=== PATIENT | female | born 1950 | race Caucasian/White ===

== ENCOUNTER → 2017-02-17 08:26 | Outpatient (CLI) | payer BC ==
[2015-06-30 08:36] VITALS: BMI 22.7
[~2017-02-17 08:26] MED LIST: ALENDRONATE SOD70 MG PO; BAYER CHEWABLE81 MG PO; CALTRATE 600 M600 M1 PO; LEVOTHY; LISINOPRIL; LISINOPRIL2.5 MG; MULTIPLE VITAMI1 TA1 PO
== END | disposition home or self-care (01) ==
LOC: D.RAD 08:26
DX: R13.19 Other dysphagia (principal)

== ENCOUNTER 2017-04-14 06:08 | Day surgery (SDC) | payer BC ==
[2017-04-10 14:54] LABS: HEMATOCRIT 38.7 % (36.0-48.0); HEMOGLOBIN 13.2 g/dL (12-16); MCH 33.2 pg (26.0-34.0); MCHC 34.1 g/dL (31.0-37.0); MCV 97.5 fL (80.0-100.0); RBC 3.97 10x6/uL (4.00-5.40); RDW 12.3 % (11.5-14.5); WBC 4.5 10x3/uL (4.8-10.8)
[2017-04-10 15:08] LABS: ANION GAP 9.8 mmol/L (8-16); CALCIUM 8.7 mg/dL (8.5-10.1); CARBON DIOXIDE 32.3 mmol/L (21.0-32.0); POTASSIUM - SERUM 4.1 mmol/L (3.5-5.1)
[~2017-04-14] VITALS: Ht 160 cm; Wt 65.5 kg
[~2017-04-14 06:08] MED LIST changes: +FISH OIL 1,0001 CA1 PO; +LEVOTHYROXINE50 MCG PO; -LISINOPRIL; +LISINOPRIL5 MG PO; +PROTONIX40 MG PO
[2017-04-14 10:05] VITALS: BP 121/73; BMI 25.5
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
--- NOTE | 2017-04-14 11:44 | NUR ---
NOTIFIED OF DELAY.
--- NOTE | 2017-04-14 12:23 | NUR ---
PT AWARE OF DELAY REASON AND NEW START TIME. PT WAS PLACED IN HOLDING DURING DELAY ON PULSE OX APPLIED TO PT IN HOLDING
[2017-04-14 15:11] VITALS: BP 127/34
--- NOTE | 2017-04-14 16:00 | NUR ---
RECIEVED TO ROOM 2229 VIA STRETCHER FROM RECOVERY ROOM PT AWAKE AND ALERT ORIENTED X 3 LUNGS CLEAR BILATERAL ABD TENDER WITH LAP SITES X 5 NOTED PT COMPLAIN OF PAIN TO LAP SITE TO RIGHT SIDE. NOTED TO HAVE BRUISING TO AROUND RIGHT SIDE INCISION.
[2017-04-14 16:35] VITALS: BP 138/55; Ht 160 cm; Wt 65.5 kg
--- NOTE | 2017-04-14 17:03 | NUR ---
FHA UNDERWRITER INITIATED PER THIS NURSE 1 MG DOSE GIVEN PER FHA UNDERWRITER. PER STANDARD SETTINGS. WILL MONITOR FOR EFECTIVENESS
--- NOTE | 2017-04-14 17:12 | NUR ---
PT STATES LITTLE PAIN RELEIF FROM MORPHINE WELFARE ELIGIBILITY WORKER. EXPLAINED TO PT IT TAKES A FEW DOSES FROM WELFARE ELIGIBILITY WORKER TO OBTAIN RELEIF. NEW ORDER OBTAINED FOR MIRALAX DAILY PER DR STARK
[2017-04-14 19:00] VITALS: BP 138/76
--- NOTE | 2017-04-14 23:35 | NUR ---
194)rec'd.assisted up to bathrm.urinating without difficulty.abd. lap sites dry no drainage steri strips intact with some bruising noted around couple lap sites. will continue to monitor for any chges. and follow current plan of care
--- NOTE | 2017-04-15 02:20 | NUR ---
24 G IV SITED IN L FOREARM X1 ATTEMPT, MICHELLE WYLIE RESTARTING FLUIDS ORDERED, FALL PRECAUTIONS IN PLACE
[2017-04-15 04:00] VITALS: BP 129/55
[2017-04-15 05:04] LABS: BASOPHILS 0.2 % (0-2); EOSINOPHILS 1.9 % (0-7); HEMATOCRIT 34.2 % (36.0-48.0); HEMOGLOBIN 11.4 g/dL (12-16); LYMPHOCYTES 12.8 % (15-50); MCH 32.9 pg (26.0-34.0); MCHC 33.3 g/dL (31.0-37.0); MCV 98.8 fL (80.0-100.0); MEAN PLATELET VOLUME 9.1 fL (7.4-10.4); MONOCYTES 3.6 % (2-11); NEUTROPHILS 81.5 % (40-80); PLATELET COUNT 223 10x3/uL (130-400); RBC 3.46 10x6/uL (4.00-5.40); RDW 12.4 % (11.5-14.5); WBC 6.2 10x3/uL (4.8-10.8)
[2017-04-15 05:30] LABS: ANION GAP 8.8 mmol/L (8-16); CALCIUM 8.2 mg/dL (8.5-10.1); CARBON DIOXIDE 29.8 mmol/L (21.0-32.0); CREATININE - SERUM 0.9 mg/dL (0.6-1.3); MAGNESIUM - SERUM 1.4 mg/dL (1.8-2.4); POTASSIUM - SERUM 3.6 mmol/L (3.5-5.1)
--- NOTE | 2017-04-15 07:55 | NUR ---
PT ASSESSMENT COMPLETE NO ACUTE DISTRESS NOTED VOICES ALL NEEDS TO STAFF UP WITH SPOUSE TO AMBULATE IN HALLWAY PER PROTOCOL.
--- NOTE | 2017-04-15 08:01 | OP ---
PATIENT NAME: MOUNIKA HOWARD MEDICAL RECORD: [id number] :54 LOCATION:[id number] ADMISSION DATE: SURGEON: JALEEL STARK MD DATE OF OPERATION: 04/14/2017 SURGEON: Jaleel Stark MD. PREOPERATIVE DIAGNOSES: 1. Gastroesophageal reflux disease with esophagitis. 2. Diaphragmatic hernia. 3. Hypertension. POSTOPERATIVE DIAGNOSES: 1. Gastroesophageal reflux disease with esophagitis. 2. Diaphragmatic hernia. 3. Hypertension. PROCEDURES PERFORMED: 1. Laparoscopic hiatal hernia repair. 2. Laparoscopic Mone fundoplication. ANESTHESIA: General. COMPLICATIONS: None. SPECIMENS: None. Case was clean. ESTIMATED BLOOD LOSS: 30 cc. OPERATIVE REPORT: After consent was obtained, the patient was taken to the operating room and placed in the supine position on the operating table. Next, general anesthesia was given via endotracheal intubation. A timeout was performed to confirm the correct patient and procedure. The abdomen was then prepped and draped in typical sterile fashion. Local anesthetic was injected just above the umbilicus. A stab incision was made with an 11-blade scalpel. Using an 11-mm bladeless optical trocar, the abdomen was entered under direct laparoscopic vision. Adequate pneumoperitoneum was achieved. The abdominal cavity was inspected. No evidence of bowel injury. No evidence of bleeding. The patient was then placed in the steep reverse Trendelenburg position. At this time, all remaining trocars were placed after the administration of local anesthetic, 11-mm and 5-mm trocar in the right lateral quadrant, 5-mm trocar in the left lateral quadrant and a medium sized Glory in the subxiphoid position. The left lobe of the liver was then elevated exposing the gastroesophageal junction and immediately noticed was a large hiatal hernia containing the upper portion of the stomach and cardia. At this time, the gastrohepatic ligament was opened using Harmonic scalpel. Dissection continued posteriorly until the right crura was identified. The posterior stomach and esophagus were dissected off the crura. The hernia was reduced, ____ in the abdomen. Dissection then continued superiorly. Next, the short gastrics were taken along the upper third of the stomach along the cardia, used the Harmonic scalpel along the short gastric attachments to the spleen. Dissection continued until the left crura was identified. The left crura was skeletonized. The hernia sac was excised circumferentially with the Harmonic scalpel. Dissection continued in the mediastinum until approximately 4-6 cm of intraabdominal esophagus were obtained. The diaphragmatic hiatus was then closed with an 0 OPERATIVE REPORT [id number] MOUNIKA HOWARD Stratafix polypropylene suture. At this time, the cardia of the stomach was passed posterior to the esophagus and gastroesophageal junction. A loose floppy Mone fundoplication was performed with a 2-0 Stratafix suture. Once complete, Gayathri was applied into the mediastinal spaces. The abdominal cavity was copiously irrigated and suctioned. Careful attention was paid to hemostasis. At the end of the case, there was no evidence of bowel injury, no evidence of bleeding. At this time, the Glory liver retractor was removed. The two 11-mm trocar sites were closed with the Eliezer-Jessica suture passer under direct laparoscopic vision with an 0 Vicryl suture. At this time, all remaining instruments were removed. The abdomen was desufflated. Trocars were removed. The skin was closed with 4-0 Monocryl, Mastisol and Steri-Strips. At the end of the case, all needle and instrument counts were correct. No complications occurred. The patient was extubated and transferred to the PACU in stable condition. TRANSINT:[id number] Voice Confirmation ID: [id number] DOCUMENT ID: [id number] JALEEL STARK MD at 0801 CC: [id number] DICTATION DATE: 04/14/17 1347 AUTOMATION TEST ENGINEER: 04/14/17 23[id number] [place] [address]
[2017-04-15] MEDS ORDERED: PROTONIX40 MG PO (08:22)
[2017-04-15] MEDS ORDERED: HYDROCODON-ACE1 EAC7 PO (08:22)
[2017-04-15] MEDS ORDERED: MIRALAX17 GM PO (08:23)
[2017-04-15] MEDS ORDERED: CYCLOBENZAPRINE10 MG PO (08:23)
[2017-04-15 08:30] VITALS: BP 110/90
--- NOTE | 2017-04-15 11:00 | NUR ---
PT DISCHARGE INSTRUCTIONS GIVEN PIV DISCONTINUED PT STATES UNDERSTANDING OF DISCHARGE INSTRUCTIONS. PT DISCHARGED VIA WHEELCHAIR TO PRIVATE VEHICLE PER VOULENTEER STAFF.
== END 2017-04-15 11:15 | disposition home or self-care (01) ==
LOC: D.OPS 06:08 → D.PAN 11:00 → D.OPS 11:00 → D.MS 14:50 → D.OPS 04-15 11:15
PROVIDERS: Anesthesiology; Surgery
DX: K21.0 Gastro-esophageal reflux disease with esophagitis (principal); K44.9 Diaphragmatic hernia without obstruction or gangrene; I10 Essential (primary) hypertension

== ENCOUNTER 2017-07-02 05:01 | Day surgery (SDC) | payer BC ==
[~2017-07-02] VITALS: Ht 165.1 cm; Wt 63.6 kg
[~2017-07-02 05:01] MED LIST changes: +CYCLOBENZAPRINE10 MG PO; +HYDROCODON-ACE1 EAC7 PO; +MIRALAX17 GM PO
[2017-07-02 06:42] VITALS: Ht 165.1 cm; Wt 63.6 kg
[2017-07-02] MEDS ORDERED: ZOFRAN ODT4 MG/UDTAB PO (06:46)
[2017-07-02] MEDS ORDERED: TOBREX5 ML EACH EYE (06:47)
[2017-07-02] MEDS ORDERED: CARAFATE1 G PO (06:48)
[2017-07-02] MEDS ORDERED: DEXILANT30 MG PO (06:49)
[2017-07-02] MEDS ORDERED: ALENDRONATE SOD70 MG PO (06:49)
[2017-07-02 07:31] LABS: CALC OSMOLALITY 285 mosm/kg (275-300); CALCIUM 9.3 mg/dL (8.5-10.1); CHLORIDE - SERUM 104 mmol/L (98-107); CREATININE - SERUM 0.8 mg/dL (0.6-1.3); GLUCOSE 91 mg/dL (74-106); POTASSIUM - SERUM 4.4 mmol/L (3.5-5.1); SODIUM 142 mmol/L (136-145); UREA NITROGEN 20 mg/dL (7-18); eGFR NON AFRICAN AMERICAN 76 mL/min (90-120)
[2017-07-02 07:33] LABS: HEMATOCRIT 38.5 % (36.0-48.0); HEMOGLOBIN 13.1 g/dL (12-16); MCH 32.2 pg (26.0-34.0); MCV 94.6 fL (80.0-100.0); MEAN PLATELET VOLUME 9.1 fL (7.4-10.4); RBC 4.07 10x6/uL (4.00-5.40); RDW 12.9 % (11.5-14.5); WBC 4.2 10x3/uL (4.8-10.8)
== END 2017-07-02 09:20 | disposition home or self-care (01) ==
LOC: D.OPS 05:01
PROVIDERS: Anesthesiology
DX: K44.9 Diaphragmatic hernia without obstruction or gangrene (principal); K21.0 Gastro-esophageal reflux disease with esophagitis; I10 Essential (primary) hypertension; E03.9 Hypothyroidism, unspecified; Z01.812 Encounter for preprocedural laboratory examination

== ENCOUNTER → 2017-07-21 17:03 | Outpatient (CLI) | payer BC ==
[2017-07-02 06:42] VITALS: BMI 23.3
[~2017-07-21 17:03] MED LIST changes: +CARAFATE1 G PO; +DEXILANT30 MG PO; +TOBREX5 ML EACH EYE; +ZOFRAN ODT4 MG/UDTAB PO
== END | disposition home or self-care (01) ==
LOC: D.MAMMO 16:00
DX: Z12.31 Encounter for screening mammogram for malignant neoplasm of breast (principal)

== ENCOUNTER → 2017-09-15 14:45 | Outpatient (CLI) | payer BC ==
[2017-07-02 06:42] VITALS: BMI 23.3
== END | disposition home or self-care (01) ==
LOC: D.CT 14:45
DX: K43.2 Incisional hernia without obstruction or gangrene (principal)

== ENCOUNTER → 2018-07-14 23:55 | Outpatient (CLI) | payer BC ==
[2017-07-02 06:42] VITALS: BMI 23.3
== END | disposition home or self-care (01) ==
LOC: D.MAMMO 06-29 15:15
DX: Z12.31 Encounter for screening mammogram for malignant neoplasm of breast (principal)

== ENCOUNTER → 2018-11-20 07:05 | Outpatient (CLI) | payer BC ==
[2017-07-02 06:42] VITALS: BMI 23.3
== END | disposition home or self-care (01) ==
LOC: D.MRI 07:05
DX: M54.41 Lumbago with sciatica, right side (principal)

== ENCOUNTER → 2018-12-14 16:01 | Outpatient (CLI) | payer BC ==
[2017-07-02 06:42] VITALS: BMI 23.3
== END | disposition home or self-care (01) ==
LOC: D.LAB 16:01
DX: R19.7 Diarrhea, unspecified (principal)

== ENCOUNTER 2019-06-14 08:00 | Outpatient (CLI) | payer BC ==
[2017-07-02 06:42] VITALS: BMI 23.3
== END 2019-06-14 23:59 | disposition home or self-care (01) ==
LOC: D.MAMMO 08:00
PROVIDERS: ATTEND Family Medicine
DX: Z12.31 Encounter for screening mammogram for malignant neoplasm of breast (principal)